=== PATIENT | female | born 1995 | race Caucasian/White ===

== ENCOUNTER 2019-05-10 15:31 | Emergency (ER) | payer OTHER ==
[~2019-05-10] VITALS: Ht 165.1 cm; Wt 53.3 kg
[2019-05-10 15:33] VITALS: BP 138/79
--- NOTE | 2019-05-10 17:00 | NUR ---
heidi wrap applied to left ankle
== END 2019-05-10 17:00 | disposition home or self-care (01) ==
LOC: ED 16:29
DX: S93.432A Sprain of tibiofibular ligament of left ankle, initial encounter (principal); S93.622A Sprain of tarsometatarsal ligament of left foot, initial encounter; M25.522 Pain in left elbow; I10 Essential (primary) hypertension; F41.1 Generalized anxiety disorder; X50.1XXA Overexertion from prolonged static or awkward postures, initial encounter; Y93.89 Activity, other specified; Y92.89 Other specified places as the place of occurrence of the external cause; Y99.8 Other external cause status
CPT/HCPCS: 99283